=== PATIENT | female | born 2000 | race African-American/Black ===

== ENCOUNTER 2023-12-15 17:33 | Emergency (ER) | payer SELFPAY ==
[~2023-12-15] VITALS: Ht 172.7 cm; Wt 104.3 kg
[2023-12-15 18:08] VITALS: BP 136/89
[2023-12-15] MEDS ORDERED: LIDOcaine HCl 1% (Local Anesth.) 20 ML VIAL STI STA (18:12)
[2023-12-15 18:15] VITALS: BP 132/91
[2023-12-15] MEDS ORDERED: Diph, Acellular Pertussis, Tet 0.5 ML/VIAL (Tdap) SDV IM ONE (18:15)
== END 2023-12-15 18:51 | disposition home or self-care (01) | DRG 159 ==
LOC: ED 17:33
PROC: 0HQ1XZZ Repair Face Skin, External Approach (ICD-10-PCS; principal; 2023-12-15)
DX: S01.511A Laceration without foreign body of lip, initial encounter (principal); W20.8XXA Other cause of strike by thrown, projected or falling object, initial encounter; Y93.89 Activity, other specified; Y92.89 Other specified places as the place of occurrence of the external cause; Y99.0 Civilian activity done for income or pay